=== PATIENT | male | born 2000 | race African-American/Black ===

== ENCOUNTER 2022-01-10 20:02 | Emergency (ER) | payer SELFPAY ==
[~2022-01-10] VITALS: Ht 175.3 cm; Wt 68.0 kg
[2022-01-10 20:39] VITALS: BP 119/73
[2022-01-10] MEDS ORDERED: IBUPROFEN 600MG TABLET PO ONE (22:15)
[2022-01-10] MEDS ORDERED: ACETAMINOPHEN 325MG TABLET PO ONE (22:15)
== END 2022-01-10 22:36 | disposition home or self-care (01) ==
LOC: ER 20:02
DX: S40.012A Contusion of left shoulder, initial encounter (principal); W18.39XA Other fall on same level, initial encounter; Y93.89 Activity, other specified; Y92.89 Other specified places as the place of occurrence of the external cause; Y99.8 Other external cause status
CPT/HCPCS: 73000; 73030; 73060; 99284